=== PATIENT | female | born 1975 | race Caucasian/White ===

== ENCOUNTER 2020-06-08 15:39 | Outpatient (CLI) | payer OTHER ==
[~2020-06-08 15:39] MED LIST: BENADRYL25 MG PO; EYE ALLERGY REL15 M1 OP; MEDROL4 MG PO
== END 2020-06-08 18:00 | disposition home or self-care (01) ==
LOC: LAB 15:39
DX: Z03.818 Encounter for observation for suspected exposure to other biological agents ruled out (principal)

== ENCOUNTER → 2020-07-01 08:26 | Outpatient (CLI) | payer OTHER | END | disposition home or self-care (01) | LOC: LAB 08:26 | DX: U07.1 COVID-19 (principal); R05 Cough ==

== ENCOUNTER 2021-05-31 15:58 | Outpatient (CLI) | payer OTHER | END 2021-05-31 16:03 | disposition home or self-care (01) | LOC: LAB 15:58 | DX: U07.1 COVID-19 (principal) ==

== ENCOUNTER 2021-06-30 09:43 | Outpatient (CLI) | payer OTHER | END 2021-06-30 10:39 | disposition home or self-care (01) | LOC: ASH CLINIC 09:43 | PROVIDERS: ATTEND Emergency Medicine | DX: U07.1 COVID-19 (principal); Z23 Encounter for immunization ==

== ENCOUNTER 2023-06-05 09:20 | Outpatient (CLI) | payer OTHER ==
[2023-06-05 11:39] LABS: ALBUMIN 3.7 gm/dL (3.4-5.0); BILIRUBIN TOTAL 0.64 mg/dL (0.3-1.2); CALCIUM 8.9 mg/dL (8.5-10.1); CREATININE SERUM 0.74 mg/dL (0.55-1.02); GFR 84.12; GLOBULINA 3.4 G/DL (2.4-3.5); POTASSIUM 4.31 mEq/L (3.5-5.1); TOTAL PROTEIN 7.1 gm/dL (6.4-8.2)
[2023-06-06 08:10] LABS: hav igm Negative (Negative); hcv Non Reactive (Non Reactive); hep b c Negative (Negative)
== END 2023-06-05 09:23 | disposition home or self-care (01) ==
LOC: LAB 09:20
PROVIDERS: ATTEND Obstetrics & Gynecology Gynecology
DX: R74.8 Abnormal levels of other serum enzymes (principal); Z88.6 Allergy status to analgesic agent

== ENCOUNTER 2023-06-05 09:28 | Outpatient (CLI) | payer OTHER | END 2023-06-05 09:29 | disposition home or self-care (01) | LOC: SONOGRAMA 09:28 | PROVIDERS: ATTEND Obstetrics & Gynecology Gynecology | DX: R74.8 Abnormal levels of other serum enzymes (principal); K86.9 Disease of pancreas, unspecified ==